=== PATIENT | male | born 1975 | race Caucasian/White ===

== ENCOUNTER 2017-09-30 14:11 | Inpatient (IN) | payer SELFPAY, OTHER ==
[2017-09-30 14:38] LABS: ADD MAN DIFF? NO
[2017-09-30 14:50] LABS: ANION GAP 26 (6-14); BLOOD UREA NITROGEN 7 mg/dL (8-26); CALCIUM 10.3 mg/dL (8.5-10.1); CARBON DIOXIDE 15 mmol/L (21-32); CHLORIDE 100 mmol/L (98-107); CREATININE 1.5 mg/dL (0.7-1.3); GFR 52.1; GLUCOSE 186 mg/dL (70-99); POTASSIUM 3.4 mmol/L (3.5-5.1); SODIUM 141 mmol/L (136-145)
[2017-09-30 14:54] LABS: BASO # 0.1 x10^3/uL (0.0-0.2); BASO % 1 % (0-3); EOS % 0 % (0-3); HEMATOCRIT 43.8 % (39.0-53.0); HEMOGLOBIN 14.3 g/dL (13.0-17.5); LYMPH # 1.3 x10^3/uL (1.0-4.8); LYMPH % 17 % (24-48); MEAN CORPUSCULAR HEMOGLOBIN 28 pg (25-35); MEAN CORPUSCULAR HGB CONC 33 g/dL (31-37); MEAN CORPUSCULAR VOLUME 85 fL (79-100); MONO # 0.8 x10^3/uL (0.0-1.1); MONO % 11 % (0-9); NEUT # 5.4 x10^3uL (1.8-7.7); NEUT % 71 % (31-73); PLATELET COUNT 249 x10^3/uL (140-400); RED BLOOD COUNT 5.18 x10^6/uL (4.30-5.70); RED CELL DISTRIBUTION WIDTH 20.2 % (11.5-14.5); WHITE BLOOD COUNT 7.5 x10^3/uL (4.0-11.0)
[2017-09-30 14:55] LABS: ALBUMIN 3.9 g/dL (3.4-5.0); ALK PHOS 74 U/L (46-116); ALT (SGPT) 61 U/L (16-63); AST (SGOT) 75 U/L (15-37); DIRECT BILIRUBIN 0.3 mg/dL (0.0-0.2); LIPASE 68 U/L (73-393); MAGNESIUM 1.7 mg/dL (1.8-2.4)
[2017-09-30 14:56] LABS: TROPONINI < 0.017 ng/mL (0.000-0.055)
[2017-09-30 15:03] LABS: THYROID STIM HORMONE (TSH) 1.403 uIU/mL (0.358-3.74)
[2017-09-30 15:05] LABS: NT-PRO BNP 242 pg/mL (0-124)
[2017-09-30 15:05] LABS: CKMB INDEX 0.8 % (0-4); CREATINE KINASE 127 U/L (39-308)
[2017-09-30 15:09] LABS: INR 1.2 (0.8-1.1); PROTHROMBIN TIME PATIENT 14.2 SEC (11.7-14.0)
[2017-09-30 15:17] LABS: D-DIMER 0.36 ug/mlFEU (0.00-0.50)
[2017-09-30] MEDS: IV NORMAL SALINE 1000ML BAG 1,000 ML IV ×2 (15:19→16:03)
[2017-09-30 15:22] LABS: LACTIC ACID 12.5 mmol/L (0.4-2.0)
[2017-09-30] MEDS: MAGNESIUM OXIDE 400 MG TABLET PO (15:54)
[2017-09-30] MEDS: POTASSIUM CHLORIDE 20 MEQ TABLET.ER. PO (15:54)
[2017-09-30] MEDS: MAGNESIUM SULFATE 2GM 50 ML IV (15:57)
[2017-09-30] MEDS ORDERED: ONDANSETRON PF 4 MG/2 ML VIAL. IV (16:00)
[2017-09-30] MEDS ORDERED: fentaNYL PF VIAL 100 MCG/2 ML VIAL IV (16:00)
[2017-09-30 16:31] LABS: CREATINE KINASE 122 U/L (39-308)
[2017-09-30 16:40] LABS: ACETAMIN < 2 mcg/ml (10-30); ETHANOL < 10 mg/dL (0-10); SALIC < 2.8 mg/dL (2.8-20.0)
[2017-09-30 16:50] LABS: LACTIC ACID 1.7 mmol/L (0.4-2.0)
[2017-09-30 17:20] LABS: ANISOCYTOSIS MOD; PLT ESTIMATE ADEQUATE (ADEQUATE)
[2017-09-30 17:36] LABS: BILIRUBIN,URINE NEGATIVE (NEG); CLARITY,URINE CLOUDY; COLOR,URINE YELLOW; GLUCOSE,URINE NEGATIVE (NEG); NITRITE,URINE NEGATIVE (NEG); PROTEIN,URINE NEGATIVE (NEG-TRACE); UROBILINOGEN,URINE 0.2 mg/dL (0.2 mg/dL)
[2017-09-30] MEDS: PIPERACILLIN/TAZOBACTAM 3.375 GM in IV NORMAL SALINE 50ML 50 ML IV (17:36)
[2017-09-30 17:40] LABS: BARBITURATES NEG (NEG); BENZODIAZEPINES POS (NEG); CANNABINOIDS POS (NEG); COCAINE NEG (NEG); METHADONE NEG (NEG); OPIATES NEG (NEG); PHENCYCLIDINE NEG (NEG)
[2017-09-30 17:41] LABS: AMPHETAMINE/METHAMPHETAMINE POS (NEG); ETHANOL, URINE NEG (NEG)
[2017-09-30 17:42] LABS: AMORPHOUS SEDIMENT,UR PRESENT /HPF; BACTERIA,URINE 0 /HPF (0-FEW); HYALINE CASTS, URINE FEW /HPF; RBC,URINE 0 /HPF (0-2); SQUAMOUS EPITHELIAL CELL,UR OCC /LPF
[2017-09-30] MEDS: MULTIVIT INFUSN,ADULT 4,VIT K 10 ML, THIAMINE 100 MG, FOLIC ACID 1 MG in IV DEXTROSE 5%... IV (18:27)
[2017-09-30 19:21] LABS: LACTIC ACID 1.2 mmol/L (0.4-2.0)
[2017-09-30] MEDS: ENOXAPARIN 40 MG/0.4 ML SYRINGE. SQ (20:09)
[2017-10-01] MEDS: MULTIVIT INFUSN,ADULT 4,VIT K 10 ML, THIAMINE 100 MG, FOLIC ACID 1 MG in IV NORMAL SALI... IV (03:00)
[2017-10-01 04:58] LABS: ADD MAN DIFF? NO
[2017-10-01 05:07] LABS: BASO % 1 % (0-3); EOS # 0.2 x10^3/uL (0.0-0.7); EOS % 3 % (0-3); HEMATOCRIT 37.4 % (39.0-53.0); HEMOGLOBIN 12.4 g/dL (13.0-17.5); LYMPH # 1.6 x10^3/uL (1.0-4.8); LYMPH % 29 % (24-48); MEAN CORPUSCULAR HEMOGLOBIN 28 pg (25-35); MEAN CORPUSCULAR HGB CONC 33 g/dL (31-37); MEAN CORPUSCULAR VOLUME 83 fL (79-100); MONO # 0.7 x10^3/uL (0.0-1.1); MONO % 13 % (0-9); NEUT # 3.1 x10^3uL (1.8-7.7); NEUT % 55 % (31-73); PLATELET COUNT 184 x10^3/uL (140-400); RED BLOOD COUNT 4.49 x10^6/uL (4.30-5.70); RED CELL DISTRIBUTION WIDTH 20.5 % (11.5-14.5); WHITE BLOOD COUNT 5.7 x10^3/uL (4.0-11.0)
[2017-10-01 05:22] LABS: ANION GAP 8 (6-14); BLOOD UREA NITROGEN 4 mg/dL (8-26); CALCIUM 8.6 mg/dL (8.5-10.1); CARBON DIOXIDE 29 mmol/L (21-32); CHLORIDE 106 mmol/L (98-107); CREATININE 0.8 mg/dL (0.7-1.3); GFR 107.6; GLUCOSE 101 mg/dL (70-99); POTASSIUM 3.1 mmol/L (3.5-5.1); SODIUM 143 mmol/L (136-145)
[2017-10-01] MEDS: MULTIVITAMIN with MINERAL TABLET. PO (08:12)
[2017-10-01] MEDS: FOLIC ACID 1 MG TABLET. PO (08:12)
[2017-10-01] MEDS ORDERED: oxyCODONE/APAP 5/325 1 TAB TABLET PO (09:00)
[2017-10-01] MEDS: CETIRIZINE HCL 10 MG TABLET. PO (09:00)
[2017-10-01] MEDS ORDERED: ONDANSETRON PF 4 MG/2 ML VIAL. IV (09:15)
[2017-10-01] MEDS: LISINOPRIL 10 MG TABLET PO (10:18)
[2017-10-01] MEDS: METOPROLOL SUCC 24HR ER 100 MG TAB.ER.24H. PO (10:19)
[2017-10-01 14:25] LABS: MRSA BY PCR Negative (Negative)
== END 2017-10-01 14:30 | disposition home or self-care (01) | DRG 897 ==
LOC: ER 14:11 → 1 WEST ICU 15:39
DX: F10.239 Alcohol dependence with withdrawal, unspecified (principal); E87.2 Acidosis; G93.89 Other specified disorders of brain; R56.9 Unspecified convulsions; F98.8 Other specified behavioral and emotional disorders with onset usually occurring in childhood and adolescence; W18.39XA Other fall on same level, initial encounter; F12.90 Cannabis use, unspecified, uncomplicated; F17.210 Nicotine dependence, cigarettes, uncomplicated; S00.93XA Contusion of unspecified part of head, initial encounter; M46.02 Spinal enthesopathy, cervical region; F41.9 Anxiety disorder, unspecified; I10 Essential (primary) hypertension; J32.0 Chronic maxillary sinusitis; Y93.89 Activity, other specified; Y92.89 Other specified places as the place of occurrence of the external cause; Y99.8 Other external cause status; E87.6 Hypokalemia
CPT/HCPCS: 36415; 70450; 70551; 71045; 72125; 80048; 80076; 80307; 80329; 81001; 82550; 82553; 83605; 83690; 83735; 83880; 83930; 84443; 84484; 85025; 85379; 85610; 87040; 87086; 87641; 93005; G0480; J1650; J2060; J2543; J3475; J7030